=== PATIENT | male | born 1990 | race African-American/Black ===

== ENCOUNTER 2017-12-20 06:06 | Emergency (ER) | payer SELFPAY ==
[2017-12-20] MEDS ORDERED: Azithromycin 250 MG TAB ONE (07:25)
[2017-12-20] MEDS ORDERED: cefTRIAXone\\ROCEPHIN 250 MG VIAL ONE (07:25)
[2017-12-20] MEDS ORDERED: Lidocaine 1% PF 5 ML VIAL ONE (07:25)
[2017-12-22 02:04] LABS: Chlamydia by PCR DETECTED (NotDetected); GC by PCR DETECTED (NotDetected)
== END 2017-12-20 08:13 | disposition home or self-care (01) ==
LOC: ERS 06:06
DX: R36.9 Urethral discharge, unspecified (principal)
CPT/HCPCS: 87491; 87591; 96372; J0696; J2001